=== PATIENT | female | born 1965 | race African-American/Black ===

== ENCOUNTER → 2017-12-29 | Outpatient (CLI) | payer OTHER ==
[~2017-12-29] MED LIST: ATIVAN1 MG PO
== END ==
LOC: RAD 14:28
DX: M54.41 Lumbago with sciatica, right side (principal); M25.551 Pain in right hip

== ENCOUNTER → 2018-01-04 | Outpatient (CLI) | payer OTHER | LOC: RAD 15:56 | DX: M79.5 Residual foreign body in soft tissue (principal) ==

== ENCOUNTER → 2020-03-07 | Outpatient (CLI) | payer OTHER | LOC: BC 12:25 | PROVIDERS: ATTEND Nurse Practitioner | DX: Z12.31 Encounter for screening mammogram for malignant neoplasm of breast (principal) ==

== ENCOUNTER → 2020-08-17 | Outpatient (CLI) | payer OTHER | LOC: RAD 10:47 | PROVIDERS: ATTEND Nurse Practitioner | DX: N63.10 Unspecified lump in the right breast, unspecified quadrant (principal) ==